=== PATIENT | female | born 1945 | race Caucasian/White ===

== ENCOUNTER 2016-07-09 20:20 | Observation (INO) | payer OTHER ==
[~2016-07-09] VITALS: Ht 170.2 cm; Wt 104.0 kg
[~2016-07-09 20:20] MED LIST: CELEBREX200 MG PO; CIPRO500 MG PO; LASIX10 MG PO; LIPITOR5 MG PO; PREVACID30 MG PO; TOPROL XL50 MG PO
[2016-07-09 20:42] LABS: HEMATOCRIT 42.7 % (36.0-46.0); MCH 30.5 PG (29.0-34.0); MCHC 32.8 G/DL (30.0-36.0); MEAN PLAT.VOLUME 11.2 uM^3 (9.5-12.4); PLATELET COUNT 216 K/uL (156-360); RBC DIS.WIDTH-CV 13.4 % (11.8-14.6); RBC DIS.WIDTH-SD 45.5 % (39-53); RED BLOOD COUNT 4.59 M/uL (3.80-5.20); WHITE BLOOD COUNT 8.9 K/uL (4.1-10.2)
[2016-07-09] MEDS ORDERED: LIPITOR10 MG PO (21:38)
[2016-07-09] MEDS ORDERED: LOSARTAN POTAS100 MG PO (21:39)
[2016-07-09] MEDS ORDERED: LASIX20 MG PO (21:39)
[2016-07-09] MEDS ORDERED: DILTIAZEM 24HR240 MG PO (21:40)
[2016-07-09] MEDS ORDERED: OCEAN BLUE OME350 MG PO (21:41)
[2016-07-09] MEDS ORDERED: VITAMIN D400 UNI1 PO (21:41)
[2016-07-09] MEDS ORDERED: CLARITIN,ALAVAR10 MG PO (21:41)
[2016-07-09 22:34] LABS: CHLORIDE 107 mEq/L (99-109); POTASSIUM 3.8 mEq/L (3.7-5.4); SODIUM 141 mEq/L (136-147)
[2016-07-09 22:36] LABS: GLUCOSE 122 mg/dL (70-99)
[2016-07-09 22:37] LABS: ANION GAP 12 MEQ/L (2-14)
[2016-07-09 22:40] LABS: GFR ESTIMATE (CALCULATED) > 59 mL/min/
[2016-07-09 22:41] LABS: UREA NITROGEN (BUN) 20 mg/dL (9-23)
[2016-07-09 22:47] LABS: TROP-I INTERPRETATION NEGATIVE; TROPONIN-I < 0.01 ng/mL (0.0-0.30)
[2016-07-10 01:05] VITALS: BP 139/65
[2016-07-10 06:01] LABS: TROP-I INTERPRETATION NEGATIVE; TROPONIN-I < 0.01 ng/mL (0.0-0.30)
[2016-07-10 08:00] VITALS: BP 131/61
[2016-07-10 11:24] LABS: TROP-I INTERPRETATION NEGATIVE; TROPONIN-I < 0.01 ng/mL (0.0-0.30)
[2016-07-10 11:39] VITALS: BP 130/60
[2016-07-10] MEDS ORDERED: LOPRESSOR25 MG PO (13:10)
[2016-07-10] MEDS ORDERED: LO-DOSE ASPIRIN81 M2 PO (13:11)
== END 2016-07-10 14:11 | disposition home or self-care (01) ==
LOC: EME 20:20 → 5WEST 07-10 00:10 → EDOF 07-10 00:10 → 5WEST 07-10 01:00
PROVIDERS: Family Medicine
DX: R07.89 Other chest pain (principal); I16.0 Hypertensive urgency; I10 Essential (primary) hypertension; E78.5 Hyperlipidemia, unspecified
CPT/HCPCS: 71020; 80048; 84484; 85027; 93005; 99281; 99285; G0378; J2405